=== PATIENT | male | born 1990 | race Caucasian/White ===

== ENCOUNTER 2018-06-23 13:47 | Emergency (ER) | payer BC ==
--- NOTE | 2018-06-23 16:40 | ED ---
GI/ HPI - HPI Summary HPI Summary: Pt is a 28 y/o M presenting to the ED with a chief complaint of testicular pain onset about 1030 this morning. Pt is a paula, was putting in light fixtures , and he then got random shooting pain in his groin area. He checked himself and noticed his R testicle was swollen and sensitive, went to , and they sent him to the ED. Pt is sexually active with a single partner. - History of Current Complaint Chief Complaint: EDUrogenitalProblems Time Seen by Provider: 06/23/18 16:28 Stated Complaint: TESTICULAR PAIN Hx Obtained From: Patient Onset/Duration: Started Hours Ago, Still Present Timing: Constant, Lasting Hours Severity: Severe Current Severity: Moderate Pain Intensity: 6 Additional Locations for Males: Testicles Pain Characteristics: Sharp Associated Signs and Symptoms: Positive: Negative, Other: - testicular edema Aggravating Factor(s): Walking/Exertion Alleviating Factor(s): Rest - Allergy/Home Medications Allergies/Adverse Reactions: Allergies Allergy/AdvReac Type Severity Reaction Status Date / Time No Known Allergies Allergy Verified 06/23/18 13:52 PMH/Surg Hx/FS Hx/Imm Hx Previously Healthy: Yes Endocrine/Hematology History: Denies: Hx Diabetes Sensory History: Denies: Hx Deafness Infectious Disease History: No Infectious Disease History: Denies: Traveled Outside the [place] in Last 30 Days - Family History Known Family History: Negative: Respiratory Disease - Social History Alcohol Use: None Substance Use Type: Reports: None Smoking Status (MU): Never Smoked Tobacco Review of Systems Negative: Fever Positive: other - swollen, painful testicles All Other Systems Reviewed And Are Negative: Yes Physical Exam - Summary Physical Exam Summary: Appearance: The patient is well-nourished in no acute distress and in no acute pain. Skin: The skin is warm and dry and skin color reflects adequate perfusion HEENT: The head is normocephalic and atraumatic. The pupils are equal and reactive. The conjunctivae are clear and without drainage. Nares are patent and without drainage. Mouth reveals moist mucous membranes and the throat is without erythema and exudate. The external ears are intact. The ear canals are patent and without drainage. The tympanic membranes are intact. Neck: The neck is supple with full range of motion and non-tender. There are no carotid bruits. There is no neck vein distension. Respiratory: Chest is non-tender. Lungs are clear to auscultation and breath sounds are symmetrical and equal. Cardiovascular: Heart is regular rate and rhythm. There is no murmur or rub auscultated. There is no peripheral edema and pulses are symmetrical and equal. Abdomen: The abdomen is soft and non-tender. There are normal bowel sounds heard in all four quadrants and there is no organomegaly palpated. Musculoskeletal: There is no back tenderness noted. Extremities are non-tender with full range of motion. There is good capillary refill. There is no peripheral edema or calf tenderness elicited. Neurological: Patient is alert and oriented to person, place and time. The patient has symmetrical motor strength in all four extremities. Cranial nerves are grossly intact. Deep tendon reflexes are symmetrical and equal in all four extremities. Psychiatric: The patient has an appropriate affect and does not exhibit any anxiety or depression. : Cremaster reflex diminished, tender over R epididymis. Triage Information Reviewed: Yes Vital Signs On Initial Exam: Initial Vitals Temp Pulse Resp BP Pulse Ox 98.3 F 71 20 149/85 97 06/23/18 13:51 06/23/18 13:51 06/23/18 13:51 06/23/18 13:51 06/23/18 13:51 Vital Signs Reviewed: Yes Diagnostics - Vital Signs Vital Signs Temp Pulse Resp BP Pulse Ox 06/23/18 16:04 60 96 06/23/18 16:03 61 123/77 96 06/23/18 13:51 98.3 F 71 20 149/85 97 - Laboratory Lab Statement: Any lab studies that have been ordered have been reviewed, and results considered in the medical decision making process. - Ultrasound No standard instances Ultrasound Interpretation Completed By: Radiologist Summary of Ultrasound Findings: 1. NO TESTICULAR PARENCHYMAL MASS. 2. NO SONOGRAPHIC FEATURES OF TORSION. PLEASE NOTE THAT PARTIAL OR INTERMITTENT TORSION. MAY BE SONOGRAPHICALLY NORMAL. 3. THE RIGHT EPIDIDYMIS IS ENLARGED HETEROGENEOUS WITH MILD HYPERVASCULARITY SUGGESTIVE. OF EPIDIDYMITIS. 4. SMALL BILATERAL HYDROCELES AND VARICOCELES. ED physician has reviewed this report. GIGU Course/Dx - Course Course Of Treatment: Mr. Vora presented to the emergency department with pain in his right testicle. Clinically he is seem to have an epididymitis. An ultrasound was obtained and was read as likely epididymitis. He was treated with antibiotics and encouraged for follow-up. - Diagnoses Provider Diagnoses: Epididymitis Discharge - Sign-Out/Discharge Documenting (check all that apply): Patient Departure - Discharge Plan Condition: Stable Disposition: HOME Prescriptions: DOXYcycline CAP(*) [DOXYcycline 100MG CAP(*)] 100 mg PO BID #20 cap Referrals: [facility] [Outside] - Billing Disposition and Condition Condition: STABLE Disposition: Home - Attestation Statements Document Initiated by Scribe: Yes Documenting Scribe: Pat Geronimo Provider For Whom Malika is Documenting (Include Credential): Zackery Clements MD. Scribe Attestation: Pat Menon, scribed for Zackery Clements MD. on 06/23/18 at 1756. Scribe Documentation Reviewed: Yes Provider Attestation: The documentation as recorded by the Pat wick accurately reflects the service I personally performed and the decisions made by , Zackery Clements MD. Status of Scribe Document: Viewed
[2018-06-23] MEDS ORDERED: cefTRIAXone VIAL(*) 250 MG VIAL IM ONE (16:41)
[2018-06-23 16:57] VITALS: BP 129/82
[2018-06-23] MEDS ORDERED: Lidocaine 1%* 5 ML VIAL ONE (16:59)
[2018-06-23] MEDS ORDERED: Lidocaine 1%* 5 ML VIAL INJ ONE (17:03)
== END 2018-06-23 17:09 | disposition home or self-care (01) ==
LOC: ED 13:47
DX: N45.1 Epididymitis (principal); N50.811 Right testicular pain
CPT/HCPCS: 76870; 96372; 96374; 99282; J0696

== ENCOUNTER 2018-07-07 11:40 | Emergency (ER) | payer BC, OTHER ==
[2018-07-07 12:52] VITALS: BP 115/66
--- NOTE | 2018-07-07 13:09 | UC ---
HPI Wound/Suture Re-check - HPI Summary HPI Summary: Pt presents for removal of flakita that were placed in his scalp at [facility] 8 days ago. Injure occurred at work. - History Of Current Complaint Chief Complaint: UCLaceration Stated Complaint: STAPLE REMOVAL (DONE AT [facility]) Time Seen by Provider: 07/07/18 12:56 Hx Obtained From: Patient Onset/Duration: Sudden Onset, Lasting Days Severity: Mild Pain Intensity: 0 - Allergies/Home Medications Allergies/Adverse Reactions: Allergies Allergy/AdvReac Type Severity Reaction Status Date / Time No Known Allergies Allergy Verified 07/07/18 12:49 Home Medications: Home Medications NK [No Home Medications Reported] 07/07/18 [History Confirmed 07/07/18] PMH/Surg Hx/FS Hx/Imm Hx Previously Healthy: Yes - Surgical History Surgical History: Yes Surgery Procedure, Year, and Place: Tonsillectomy as a child - Family History Known Family History: Negative: Respiratory Disease - Social History Occupation: Employed Full-time Lives: With Family Alcohol Use: None Substance Use Type: None Smoking Status (MU): Never Smoked Tobacco Have You Smoked in the Last Year: No - Immunization History Vaccination Up to Date: Yes Review of Systems All Other Systems Reviewed And Are Negative: Yes Constitutional: Positive: Negative Skin: Positive: Other - 4 flakita intact in right side of scalp parietal Eyes: Positive: Negative ENT: Positive: Negative Respiratory: Positive: Negative Cardiovascular: Positive: Negative Gastrointestinal: Positive: Negative Genitourinary: Positive: Negative Motor: Positive: Negative Neurovascular: Positive: Negative Musculoskeletal: Positive: Negative Neurological: Positive: Negative Psychological: Positive: Negative Is Patient Immunocompromised?: No Physical Exam Triage Information Reviewed: Yes Appearance: Well-Appearing Vital Signs: Initial Vital Signs Temp 98.1 F 07/07/18 12:48 Pulse 60 07/07/18 12:48 Resp 16 07/07/18 12:48 BP 115/66 07/07/18 12:48 Pulse Ox 99 07/07/18 12:48 Vital Signs Reviewed: Yes Eye Exam: Normal ENT Exam: Normal ENT: Positive: Hearing grossly normal Dental Exam: Normal Neck exam: Normal Respiratory: Positive: No respiratory distress Musculoskeletal Exam: Normal Neurological Exam: Normal Psychological Exam: Normal Skin Exam: Other - 4 flakita intact right side parietal Course/Dx - Course Course Of Treatment: 4 flakita removed from scalp. pt tolerated well. wound cleansed with NS to remove dried blood. edges well approximated, mild tenderness at site, no drainage, no significant erythema, - Differential Dx - Laceration/Wound Differential Diagnoses: Other - staple removal - Diagnosis Provider Diagnosis: Removal of flakita Discharge - Sign-Out/Discharge Documenting (check all that apply): Patient Departure All imaging exams completed and their final reports reviewed: No Studies - Discharge Plan Condition: Stable Disposition: HOME Patient Education Materials: Bacitracin (On the skin), Acute Wounds (ED) Forms: *Work Release Referrals: Clayton Marcos MD [Primary Care Provider] - If Needed - Billing Disposition and Condition Condition: STABLE Disposition: Home
== END 2018-07-07 13:19 | disposition home or self-care (01) ==
LOC: UCCORT 11:40
DX: S01.01XD Laceration without foreign body of scalp, subsequent encounter (principal); X58.XXXD Exposure to other specified factors, subsequent encounter
CPT/HCPCS: 99211; G0463